=== PATIENT | female | born 1990 | race Caucasian/White ===

== ENCOUNTER 2019-04-20 20:04 | Emergency (ER) | payer OTHER ==
[2019-04-20] MEDS ORDERED: Phenazopyridine 100 MG Tab PO ONE (20:42)
[2019-04-20] MEDS ORDERED: Cephalexin 250 MG Cap PO ONE (20:59)
--- NOTE | 2019-04-20 21:01 | EDM.PDOC ---
ED HPI GENERAL MEDICAL PROBLEM - General Chief Complaint: Genitourinary Problem Stated Complaint: UTI Time Seen by Provider: 04/20/19 20:40 Source of Information: Reports: Patient History Limitations: Reports: No Limitations - History of Present Illness INITIAL COMMENTS - FREE TEXT/NARRATIVE: 28 YO WF presents to ER complaining of dysuria with urinary frequency and urgency which began this afternoon while at work. Pt reports associated lower abdominal discomfort but denies back pain, fever/chills, or nausea/vomiting. Pt denies any PMH of UTIs. Pt appears comfortable and in NAD. Onset: Today Location: Reports: Abdomen Quality: Reports: Pressure Severity: Mild Improves with: Reports: Other (voiding) Worsens with: Reports: None Associated Symptoms: Reports: No Other Symptoms. Denies: Fever/Chills, Nausea/ Vomiting Abdominal Pain Score (Numeric/FACES): 8 - Related Data Allergies Allergy/AdvReac Type Severity Reaction Status Date / Time No Known Allergies Allergy Verified 04/20/19 20:05 Home Meds: Home Meds Cephalexin [Keflex] 500 mg PO TID #20 capsule 04/20/19 [Rx] Phenazopyridine [Pyridium] 200 mg PO TID PRN #5 tab 04/20/19 [Rx] Past Medical History - Past Surgical History HEENT Surgical History: Reports: Tonsillectomy, Other (See Below) Other HEENT Surgeries/Procedures: [place] Teeth Social & Family History - Tobacco Use Smoking Status *Q: Never Smoker - Recreational Drug Use Recreational Drug Use: No ED ROS GENERAL - Review of Systems Review Of Systems: See Below Constitutional: Reports: No Symptoms HEENT: Reports: No Symptoms Respiratory: Reports: No Symptoms Cardiovascular: Reports: No Symptoms Endocrine: Reports: No Symptoms GI/Abdominal: Reports: Abdominal Pain : Reports: Dysuria, Frequency, Urgency Musculoskeletal: Reports: No Symptoms Skin: Reports: No Symptoms Neurological: Reports: No Symptoms Psychiatric: Reports: No Symptoms Hematologic/Lymphatic: Reports: No Symptoms Immunologic: Reports: No Symptoms ED EXAM, RENAL/ - Physical Exam Exam: See Below Exam Limited By: No Limitations General Appearance: Alert, WD/WN, No Apparent Distress Throat/Mouth: Normal Inspection, Normal Lips, Normal Teeth, Normal Gums, Normal Oropharynx, Normal Voice, No Airway Compromise Head: Atraumatic, Normocephalic Neck: Normal Inspection, Supple, Non-Tender, Full Range of Motion Respiratory/Chest: No Respiratory Distress, Lungs Clear, Normal Breath Sounds, No Accessory Muscle Use, Chest Non-Tender Cardiovascular: Normal Peripheral Pulses, Regular Rate, Rhythm, No Edema, No Gallop, No JVD, No Murmur, No Rub GI/Abdominal: Normal Bowel Sounds, Soft, Non-Tender, No Organomegaly, No Distention, No Abnormal Bruit, No Mass Back Exam: Normal Inspection, Full Range of Motion, NT Extremities: Normal Inspection, Normal Range of Motion, Non-Tender, Normal Capillary Refill, No Pedal Edema Neurological: Alert, Oriented, CN II-XII Intact, Normal Cognition, Normal Gait, Normal Reflexes, No Motor/Sensory Deficits Psychiatric: Normal Affect, Normal Mood Skin Exam: Warm, Dry, Intact, Normal Color, No Rash Lymphatic: No Adenopathy Course - Vital Signs Last Recorded V/S: Last Vital Signs Temp 36.2 C 04/20/19 20:07 Pulse 78 04/20/19 20:07 Resp 16 04/20/19 20:07 BP 144/75 H 04/20/19 20:07 Pulse Ox 99 04/20/19 20:07 - Orders/Labs/Meds Labs: Laboratory Tests 04/20/19 04/20/19 Range/Units 20:12 20:12 Specimen Type Urincc Urine Color Light yellow (YELLOW) Urine Appearance Turbid H (CLEAR) Urine pH 6.0 (5.0-9.0) Ur Specific [place] 1.015 (1.005-1.030) Urine Protein 100 H (NEGATIVE) mg/dL Urine Glucose (UA) Negative (NEGATIVE) mg/dL Urine Ketones Negative (NEGATIVE) mg/dL Urine Occult Blood Large H (NEGATIVE) Urine Nitrite Negative (NEGATIVE) Urine Bilirubin Negative (NEGATIVE) Urine Urobilinogen 0.2 (0.2-1.0) E.U./dL Ur Leukocyte Esterase Large H (NEGATIVE) Urine RBC >100 H (0-5) /HPF Urine WBC Packed (0-5) /HPF Urine Bacteria Occasional (NONE TO FEW) /HPF Urine HCG, Qual Negative (NEGATIVE) Meds: Medications Discontinued Medications Generic Name Dose Route Start Last Admin Trade Name Freq PRN Reason Stop Dose Admin Phenazopyridine HCl 200 mg 04/20/19 20:42 02/18/20 20:46 Pyridium PO 04/20/19 20:43 200 mg DAILY ONE Administration Departure - Departure Time of Disposition: 21:07 Disposition: Home, Self-Care 01 Condition: Good Clinical Impression: UTI, Urinary tract infectious disease - Discharge Information Prescriptions: Cephalexin [Keflex] 500 mg PO TID #20 capsule Phenazopyridine [Pyridium] 200 mg PO TID PRN #5 tab PRN Reason: Pain Instructions: Urinary Tract Infection, Adult Referrals: Estelita Jain PA-C [Primary Care Provider] - Additional Instructions: 1. discharge home 2. keflex 500mg TID x 7 days 3. Pyridium 200mg TID x 2 days #5 4. plenty of fluids 5. follow up with PCP for urine culture results if no improvement next 48 hours 6. return to ER for worsening symptoms Sepsis Event Note - Evaluation Sepsis Screening Result: No Definite Risk - Focused Exam Vital Signs: Vital Signs Temp Pulse Resp BP Pulse Ox 04/20/19 20:07 36.2 C 78 16 144/75 H 99 Date Exam was Performed: 04/20/19 Time Exam was Performed: 20:55 - Assessment/Plan Assessment:: 1. Urinary tract infection Plan: 1. discharge home 2. keflex 500mg TID x 7 days 3. Pyridium 200mg TID x 2 days #5 4. plenty of fluids 5. follow up with PCP for urine culture results if no improvement next 48 hours 6. return to ER for worsening symptoms
[2019-04-20] MEDS ORDERED: Phenazopyridine 100 MG Tab PO PRN (21:05)
== END 2019-04-20 21:15 | disposition home or self-care (01) ==
LOC: KA.ED 20:04
DX: N39.0 Urinary tract infection, site not specified (principal)
CPT/HCPCS: 81001; 81025; 87086; 87088; 99283; A9270-GY

== ENCOUNTER 2023-10-18 18:58 | Emergency (ER) | payer OTHER ==
[2023-10-18] MEDS: Sodium Chloride 0.9% 10 ML Syringe FLUSH PRN (19:22)
[2023-10-18] MEDS: Sodium Chloride 0.9% 1,000 ML IV ONE (19:26)
[2023-10-18 19:28] LABS: APPEARANCE,URINE CLEAR (CLEAR); BILIRUBIN,URINE NEGATIVE (NEGATIVE); COLOR,URINE YELLOW (YELLOW); GLUCOSE,URINE NEGATIVE (NEGATIVE); KETONES,URINE NEGATIVE (NEGATIVE); LEUKOCYTE ESTERASE,URINE NEGATIVE (NEGATIVE); NITRITE,URINE NEGATIVE (NEGATIVE); OCCULT BLOOD,URINE TRACE-INTACT (NEGATIVE); PROTEIN,URINE NEGATIVE (NEGATIVE); UROBILINOGEN,URINE 0.2 E.U./dL (0.2-1.0)
[2023-10-18 19:31] LABS: EPITHELIAL CELLS,URINE FEW /LPF; RBC,URINE 0-5 /HPF (0-5); WBC,URINE 0-5 /HPF (0-5)
[2023-10-18 19:31] LABS: BASOPHILS ABSOLUTE AUTO 0.01 10^3/uL (0.00-0.10); BASOPHILS PERCENT AUTO 0.1 % (0.0-1.0); EOSINOPHILS ABSOLUTE AUTO 0.05 10^3/uL (0.10-0.30); EOSINOPHILS PERCENT AUTO 0.6 % (1.0-3.0); HEMATOCRIT 38.1 % (37.0-47.0); HEMOGLOBIN 12.5 g/dL (12.0-16.0); LYMPHOCYTES ABSOLUTE AUTO 1.49 10^3/uL (1.00-4.00); LYMPHOCYTES PERCENT AUTO 19.1 % (20.0-40.0); MEAN CORPUSCULAR HEMOGLOBIN 25.3 pg (27.0-31.0); MEAN CORPUSCULAR HGB CONC 32.8 g/dL (32.0-36.0); MEAN PLATELET VOLUME 9.6 fL (7.4-10.4); MONOCYTES ABSOLUTE AUTO 0.92 10^3/uL (0.10-0.80); MONOCYTES PERCENT AUTO 11.8 % (2.0-8.0); NEUTROPHILS ABSOLUTE AUTO 5.32 10^3/uL (2.50-7.00); NEUTROPHILS PERCENT AUTO 68.4 % (50.0-70.0); PLATELET COUNT,PLT 170 10^3/uL (150-400); RED BLOOD CELL COUNT 4.95 10^6/uL (3.80-5.50); RED CELL DISTRIBUTION WIDTH 15.3 % (11.5-14.5); WHITE BLOOD CELL COUNT,WBC 7.79 10^3/uL (5.00-10.00)
[2023-10-18 19:32] LABS: BACTERIA,URINE FEW /HPF (NONE TO FEW)
[2023-10-18 19:44] LABS: ALANINE AMINOTRANSFERASE,ALT 15 U/L (14-63); ALBUMIN 3.33 g/dL (3.40-5.00); ALKALINE PHOSPHATASE 57 U/L (46-116); ASPARTATE AMNIOTRANSFERASE,AST 14 U/L (15-37); BILIRUBIN TOTAL 0.4 mg/dL (0.2-1.0); BLOOD UREA NITROGEN,BUN 9 mg/dL (7-18); CALCIUM 8.4 mg/dL (8.7-10.3); CARBON DIOXIDE,CO2 28.1 mmol/L (21.0-32.0); CREATININE 0.85 mg/dL (0.51-1.17); GLUCOSE RANDOM 105 mg/dL (70-140); POTASSIUM,K 2.9 mmol/L (3.5-5.1); PROTEIN TOTAL,TP 7.4 g/dL (6.4-8.2)
[2023-10-18 19:46] LABS: ANION GAP 11.8 mmol/L (5-15); CHLORIDE,CL 98 mmol/L (98-107); SODIUM,NA 135 mmol/L (136-145)
[2023-10-18 19:48] LABS: ESTIMATED GFR 92 mL/min (>=60)
[2023-10-18 20:04] LABS: INFLUENZA A NAA NEGATIVE (NEGATIVE); INFLUENZA B NAA NEGATIVE (NEGATIVE); RESPIRATORY SYNCYTIAL VIR NAA NEGATIVE (NEGATIVE)
[2023-10-18 20:05] LABS: CORONAVIRUS COVID-19 NAA NEGATIVE (NEGATIVE)
[2023-10-18] MEDS: predniSONE 20 MG Tab PO ONE ×2 (20:05→20:20)
[2023-10-18] MEDS: Potassium Chloride 20 MEQ Tab.ER PO ONE (20:05)
[2023-10-18] MEDS: Albuterol/Ipratropium 3.0-0.5 MG/3 ML Neb Soln NEB ONE (20:16)
== END 2023-10-18 20:33 | disposition home or self-care (01) ==
LOC: KA.ED 18:58 → SUPCPDRO 18:58 → KA.ED 20:33
DX: J06.9 Acute upper respiratory infection, unspecified (principal); B97.89 Other viral agents as the cause of diseases classified elsewhere; Z88.8 Allergy status to other drugs, medicaments and biological substances; Z79.899 Other long term (current) drug therapy
CPT/HCPCS: 0241U; 71046; 80053; 81001; 83605; 85025; 94640; 96360; 99285; A9270; J7030; J7512; J3490; J7620-GY